=== PATIENT | female | born 1970 | race American Indian/Alaskan Native ===

== ENCOUNTER 2022-03-28 15:43 | Emergency (ER) | payer SELFPAY ==
[2022-03-28 17:42] LABS: Basophils % (Auto) 0.1 % (0.0-1.8); Eosinophils % (Auto) 0.1 % (0.0-4.3); Hematocrit 37.5 % (30.3-42.9); Hemoglobin 12.6 gm/dl (10.1-14.3); Lymphocytes # (Auto) 2.1 K/mm3 (1.2-5.4); Lymphocytes % (Auto) 26.4 % (13.4-35.0); Mean Corpuscular HGB Conc 34 % (30-34); Mean Corpuscular Volume 87 fl (79-97); Monocytes # (Auto) 0.5 K/mm3 (0.0-0.8); Monocytes % (Auto) 5.7 % (0.0-7.3); Platelet Count 237 K/mm3 (140-440)
[2022-03-28 18:03] LABS: Alanine Aminotransferase 11 units/L (7-56); Albumin 4.6 g/dL (3.9-5); BUN/Creatinine Ratio 20; Blood Urea Nitrogen 18 mg/dL (7-17); Calcium 9.8 mg/dL (8.4-10.2); Hemolysis Index 10
[2022-03-28 18:57] LABS: Amphetamine Screen,Urine PRESUMPTIVE NEGATIVE; Bacteria,Urine 1+ /HPF (Negative); Benzodiazepines Screen,Urine PRESUMPTIVE NEGATIVE; Bilirubin,Urine NEG (Negative); Blood,Urine MOD (Negative); Cannabinoid Screen,Urine PRESUMPTIVE NEGATIVE; Cocaine Screen,Urine PRESUMPTIVE NEGATIVE; Color,Urine Straw (Yellow); HCG Qualitative,Urine Negative (Negative); Methadone Screen,Urine PRESUMPTIVE NEGATIVE; Mucus,Urine FEW /HPF; Opiate Screen,Urine PRESUMPTIVE NEGATIVE; Protein,Urine <15 mg/dL mg/dL (Negative); Urobilinogen,Urine < 2.0 mg/dL (<2.0)
--- NOTE | 2022-03-28 19:22 | Emergency Department Report ---
ED General Adult HPI - General Chief complaint: Psych Stated complaint: SI Time Seen by Provider: 03/28/22 16:26 Source: patient Mode of arrival: Ambulatory Limitations: No Limitations - History of Present Illness Initial comments: patient presents with complaints of suicidal and homicidal thoughts. Denies concrete plan. Has a hx of depression. Denies visual and auditory hallucinations. Denies CP, SOB, palpitations, diaphoresis, abd pain, back pain, numbness, weakness. Severity scale (0 -10): 0 - Related Data Home Medications Medication Instructions Recorded Confirmed Last Taken Clobetasol Propionate 1 applic .ROUTE BID 04/22/15 04/27/15 04/26/15 FLUoxetine HCL [Fluoxetine HCl] 80 mg PO DAILY 04/22/15 04/27/15 04/25/15 Ferrous Sulfate [Feosol] 325 mg PO TID 04/22/15 04/27/15 04/25/15 Levocetirizine Dihydrochloride 5 mg PO DAILY 04/22/15 04/27/15 04/25/15 [Xyzal] Loratadine (Nf) [Claritin] 10 mg PO BID 04/22/15 04/27/15 04/25/15 Norgestrel-Ethinyl Estradiol 1 tab PO DAILY 04/22/15 04/27/15 04/25/15 [[place]sel[place]-28 Tablet] Prednisone 10 mg PO DAILY 04/22/15 04/27/15 04/26/15 medroxyPROGESTERone ACETATE 10 mg PO QDAY 04/22/15 04/27/15 04/25/15 [Provera] Previous Rx's Medication Instructions Recorded Last Taken Type Ferrous Sulfate [Feosol 325 MG tab] 325 mg PO BID #60 tablet 04/27/15 Unknown Rx HYDROcodone/APAP 5-325 [[place] 1 each PO Q6HR PRN #30 tablet 04/27/15 Unknown Rx 5/325] Ibuprofen [Motrin 600 MG tab] 600 mg PO Q6H PRN #30 tablet 04/27/15 Unknown Rx Ciprofloxacin HCl [Ciprofloxacin 500 mg PO BID #20 tablet 08/12/16 Unknown Rx TAB] Allergies Allergy/AdvReac Type Severity Reaction Status Date / Time zolpidem tartrate Allergy Unknown Verified 04/22/15 10:14 [From Maria Alejandra] ED Review of Systems ROS: Stated complaint: SI Other details as noted in HPI Comment: All other systems reviewed and negative Constitutional: denies: chills, fever ED Past Medical Hx - Past Medical History Hx Congestive Heart Failure: No Hx Diabetes: No Hx Arthritis: Yes Hx Headaches / Migraines: Yes (occas migraine) Hx Psychiatric Treatment: Yes (depression & anxiety) Hx Asthma: No Hx COPD: No Additional medical history: "fibroids",anemia - Surgical History Hx Coronary Stent: No Hx Open Heart Surgery: No Hx Pacemaker: No Hx Internal Defibrillator: No Hx Cholecystectomy: No Hx Appendectomy: No Hx Breast Surgery: No Additional Surgical History: "tubal" - Social History Smoking Status: Never Smoker Substance Use Type: None - Medications Home Medications: Home Medications Medication Instructions Recorded Confirmed Last Taken Type Clobetasol Propionate 1 applic .ROUTE BID 04/22/15 04/27/15 04/26/15 History FLUoxetine HCL [Fluoxetine HCl] 80 mg PO DAILY 04/22/15 04/27/15 04/25/15 History Ferrous Sulfate [Feosol] 325 mg PO TID 04/22/15 04/27/15 04/25/15 History Levocetirizine Dihydrochloride 5 mg PO DAILY 04/22/15 04/27/15 04/25/15 History [Xyzal] Loratadine (Nf) [Claritin] 10 mg PO BID 04/22/15 04/27/15 04/25/15 History Norgestrel-Ethinyl Estradiol 1 tab PO DAILY 04/22/15 04/27/15 04/25/15 History [[place]ry[place]le-28 Tablet] Prednisone 10 mg PO DAILY 04/22/15 04/27/15 04/26/15 History medroxyPROGESTERone ACETATE 10 mg PO QDAY 04/22/15 04/27/15 04/25/15 History [Provera] Ferrous Sulfate [Feosol 325 MG tab] 325 mg PO BID #60 tablet 04/27/15 Unknown Rx HYDROcodone/APAP 5-325 [[place] 1 each PO Q6HR PRN #30 tablet 04/27/15 Unknown Rx 5/325] Ibuprofen [Motrin 600 MG tab] 600 mg PO Q6H PRN #30 tablet 04/27/15 Unknown Rx Ciprofloxacin HCl [Ciprofloxacin 500 mg PO BID #20 tablet 08/12/16 Unknown Rx TAB] ED Physical Exam - General Limitations: No Limitations General appearance: alert, in no apparent distress - Head Head exam: Present: atraumatic, normocephalic - Eye Eye exam: Present: PERRL, EOMI - ENT ENT exam: Present: mucous membranes moist, other (airway patent) - Neck Neck exam: Present: other (supple; no JVD) - Respiratory Respiratory exam: Present: other (good air entry, nml I:E, CTAB, no use of RYNE) - Cardiovascular Cardiovascular Exam: Present: regular rate. Absent: rubs, gallop - GI/Abdominal GI/Abdominal exam: Present: soft, normal bowel sounds. Absent: distended, tenderness - Extremities Exam Extremities exam: Present: full ROM. Absent: tenderness - Back Exam Back exam: Present: full ROM. Absent: tenderness - Neurological Exam Neurological exam: Present: alert, oriented X3, CN II-XII intact. Absent: motor sensory deficit - Psychiatric Psychiatric exam: Present: flat affect, suicidal ideation - Skin Skin exam: Present: warm, normal color ED Course Vital Signs 03/28/22 03/28/22 03/28/22 15:57 18:46 20:22 Temperature 98.0 F 98.2 F 98.9 F Pulse Rate 75 72 70 Respiratory 18 15 18 Rate Blood Pressure 161/92 162/94 164/90 [Right] O2 Sat by Pulse 98 100 99 Oximetry ED Medical Decision Making - Lab Data Result diagrams: 03/28/22 17:07 03/28/22 17:07 Laboratory Tests 03/28/22 03/28/22 03/28/22 17:07 17:07 17:07 WBC 7.9 RBC 4.30 Hgb 12.6 Hct 37.5 MCV 87 MCH 29 MCHC 34 RDW 14.0 Plt Count 237 Lymph % (Auto) 26.4 [place] % (Auto) 5.7 Eos % (Auto) 0.1 Baso % (Auto) 0.1 Lymph # (Auto) 2.1 [place] # (Auto) 0.5 Eos # (Auto) 0.0 Baso # (Auto) 0.0 Seg Neutrophils % 67.7 Seg Neutrophils # 5.4 Sodium 142 Potassium 3.9 Chloride 102.5 Carbon Dioxide 25 Anion Gap 18 BUN 18 H Creatinine 0.9 Estimated GFR > 60 BUN/Creatinine Ratio 20 Glucose 111 H Calcium 9.8 Total Bilirubin 0.30 AST 15 ALT 11 Alkaline Phosphatase 87 Total Protein 7.4 Albumin 4.6 Albumin/Globulin Ratio 1.6 Urine Color Urine Turbidity Urine pH Ur Specific [place] Urine Protein Urine Glucose (UA) Urine Ketones Urine Blood Urine Nitrite Urine Bilirubin Urine Urobilinogen Ur Leukocyte Esterase Urine WBC (Auto) Urine RBC (Auto) U Epithel Cells (Auto) Urine Bacteria (Auto) Urine Mucus Urine HCG, Qual Salicylates < 0.3 L Urine Opiates Screen Urine Methadone Screen Acetaminophen Ur Barbiturates Screen Ur Phencyclidine Scrn Ur Amphetamines Screen U Benzodiazepines Scrn Urine Cocaine Screen U Marijuana (THC) Screen Plasma/Serum Alcohol 03/28/22 03/28/22 03/28/22 17:07 17:07 Unknown WBC RBC Hgb Hct MCV MCH MCHC RDW Plt Count Lymph % (Auto) [place] % (Auto) Eos % (Auto) Baso % (Auto) Lymph # (Auto) [place] # (Auto) Eos # (Auto) Baso # (Auto) Seg Neutrophils % Seg Neutrophils # Sodium Potassium Chloride Carbon Dioxide Anion Gap BUN Creatinine Estimated GFR BUN/Creatinine Ratio Glucose Calcium Total Bilirubin AST ALT Alkaline Phosphatase Total Protein Albumin Albumin/Globulin Ratio Urine Color Straw Urine Turbidity Clear Urine pH 5.0 Ur Specific [place] 1.013 Urine Protein <15 mg/dl Urine Glucose (UA) Neg Urine Ketones Neg Urine Blood Mod Urine Nitrite Neg Urine Bilirubin Neg Urine Urobilinogen < 2.0 Ur Leukocyte Esterase Neg Urine WBC (Auto) 2.0 Urine RBC (Auto) 7.0 U Epithel Cells (Auto) 8.0 Urine Bacteria (Auto) 1+ Urine Mucus Few Urine HCG, Qual Negative Salicylates Urine Opiates Screen Urine Methadone Screen Acetaminophen 7.1 L Ur Barbiturates Screen Ur Phencyclidine Scrn Ur Amphetamines Screen U Benzodiazepines Scrn Urine Cocaine Screen U Marijuana (THC) Screen Plasma/Serum Alcohol < 0.01 03/28/22 Unknown WBC RBC Hgb Hct MCV MCH MCHC RDW Plt Count Lymph % (Auto) [place] % (Auto) Eos % (Auto) Baso % (Auto) Lymph # (Auto) [place] # (Auto) Eos # (Auto) Baso # (Auto) Seg Neutrophils % Seg Neutrophils # Sodium Potassium Chloride Carbon Dioxide Anion Gap BUN Creatinine Estimated GFR BUN/Creatinine Ratio Glucose Calcium Total Bilirubin AST ALT Alkaline Phosphatase Total Protein Albumin Albumin/Globulin Ratio Urine Color Urine Turbidity Urine pH Ur Specific [place] Urine Protein Urine Glucose (UA) Urine Ketones Urine Blood Urine Nitrite Urine Bilirubin Urine Urobilinogen Ur Leukocyte Esterase Urine WBC (Auto) Urine RBC (Auto) U Epithel Cells (Auto) Urine Bacteria (Auto) Urine Mucus Urine HCG, Qual Salicylates Urine Opiates Screen Presumptive negative Urine Methadone Screen Presumptive negative Acetaminophen Ur Barbiturates Screen Presumptive negative Ur Phencyclidine Scrn Presumptive negative Ur Amphetamines Screen Presumptive negative U Benzodiazepines Scrn Presumptive negative Urine Cocaine Screen Presumptive negative U Marijuana (THC) Screen Presumptive negative Plasma/Serum Alcohol - Medical Decision Making Patient medically cleared. 1013 signed. MH consulted. Critical care attestation.: If time is entered above; I have spent that time in minutes in the direct care of this critically ill patient, excluding procedure time. ED Disposition Clinical Impression: Suicidal thoughts Disposition: 30 STILL A PATIENT Is pt being admited?: No Does the pt Need Aspirin: No Condition: Stable Referrals: PRIMARY CARE, [Primary Care Provider] - 3-5 Days Time of Disposition: 21:00 (Patient care transferred to Dr. Livingston (oncoming night ER doc). Sign out was given by me to him.)
[2022-03-29 09:13] VITALS: BP 137/87
--- NOTE | 2022-03-29 10:47 | Consultation ---
History of Present Illness - Reason for Consult Consult date: 03/29/22 Reason for consult: Mental health evaluation - History of Present Psychiatric Illness The patient is a 81 year old female with history of depression, and anxiety disorder who presents to the ED with suicidal ideation. The patient is calm, alert and oriented x3. She reports that is non compliant with psychotropic because it is not effective; last took meds 2 weeks ago. She reports having suicidal ideation for the past one week. She denies any current suicidal/homicidal ideation and denies hallucinations. PAST PSYCHIATRIC HISTORY: Diagnoses: Depression, Anxiety Suicide attempts or Self-harm behavior:Denies Prior psychiatric hospitalizations: Denies Substance Abuse history: Denies Previous psychiatric medications tried:Prozac Outpatient treatment:Unknown PAST MEDICAL HISTORY: None reported or document Family Psychiatric History: None reported or documented SOCIAL HISTORY Marital Status: single Living Arrangements: Lives alone Employment Status: Employed Access to guns/weapons: Denies Education:Some college History of Abuse: Denies Legal History: Denies REVIEW OF SYSTEMS Constitutional: Negative for weight loss ENT: Negative for stridor Respiratory: Negative for cough or hemoptysis All other systems reviewed and are negative MENTAL STATUS EXAMINATION General Appearance and Behavior: Age appropriate, wearing appropriate clothes, cooperative, polite with questioning, good eye contact, calm, polite Cooperation: cooperative Psychomotor Behavior: Psychomotor normal Mood: Depressed Affect and affective range: Congruent with stated mood Thought Process: Goal directed Thought Content:Reality oriented Speech: Normal volume, Regular rate and rhythm Suicidal Ideation: Denies Homicidal Ideation: Denies Hallucination: Denies Delusions: None elicited Impulse Control: limited Insight and Judgment: Limited Memory: intact Attention: attentive Orientation: Alert and oriented Diagnoses: Major depressive disorder Treatment Plan DC 1013 Continue home meds Prozac 40mg po daily Abilify 5mg po daily Trazodone 50 mg po QHS PSYCHOTHERAPY: Supportive psychotherapy provided MEDICAL: Per primary team DELIRIUM PRECAUTIONS: Please re-orient patient frequently, keep lights on during the day, and minimize benzodiazepines and opiates as these medications could worsen patient's confusion. INSURANCE WRITER: Per medical team DISPOSITION: Do not recommend acute psychiatric inpatient treatment. Hand Packager will provide patient with psychiatric outpatient resources. Will sign off. Thank you for the consult. Case staffed with Dr. Her Medications and Allergies Medications and Allergies Allergies Allergy/AdvReac Type Severity Reaction Status Date / Time zolpidem tartrate Allergy Unknown Verified 04/22/15 10:14 [From Ambien] Home Medications Medication Instructions Recorded Confirmed Last Taken Type Clobetasol Propionate 1 applic .ROUTE BID 04/22/15 04/27/15 04/26/15 History FLUoxetine HCL [Fluoxetine HCl] 80 mg PO DAILY 04/22/15 04/27/15 04/25/15 History Ferrous Sulfate [Feosol] 325 mg PO TID 04/22/15 04/27/15 04/25/15 History Levocetirizine Dihydrochloride 5 mg PO DAILY 04/22/15 04/27/15 04/25/15 History [Xyzal] Loratadine (Nf) [Claritin] 10 mg PO BID 04/22/15 04/27/15 04/25/15 History Norgestrel-Ethinyl Estradiol 1 tab PO DAILY 04/22/15 04/27/15 04/25/15 History [Cryselle-28 Tablet] Prednisone 10 mg PO DAILY 04/22/15 04/27/15 04/26/15 History medroxyPROGESTERone ACETATE 10 mg PO QDAY 04/22/15 04/27/15 04/25/15 History [Provera] Ferrous Sulfate [Feosol 325 MG tab] 325 mg PO BID #60 tablet 04/27/15 Unknown Rx HYDROcodone/APAP 5-325 [[place] 1 each PO Q6HR PRN #30 tablet 04/27/15 Unknown Rx 5/325] Ibuprofen [Motrin 600 MG tab] 600 mg PO Q6H PRN #30 tablet 04/27/15 Unknown Rx Ciprofloxacin HCl [Ciprofloxacin 500 mg PO BID #20 tablet 08/12/16 Unknown Rx TAB] ARIPiprazole [Abilify TAB] 5 mg PO DAILY 30 Days #30 03/29/22 Unknown Rx FLUoxetine HCL [PROzac] 40 mg PO QDAY 30 Days #30 cap 03/29/22 Unknown Rx traZODone [Desyrel] 50 mg PO QHS 30 Days #30 tab 03/29/22 Unknown Rx Mental Status Exam - Vital signs Last Vital Signs Temp 98.6 F 03/29/22 09:08 Pulse 67 03/29/22 09:08 Resp 20 03/29/22 09:08 BP 137/87 03/29/22 09:08 Pulse Ox 99 03/29/22 09:08 Results Result Diagrams: 03/28/22 17:07 03/28/22 17:07 Abnormal lab results 03/28/22 03/28/22 03/28/22 Range/Units 17:07 17:07 17:07 BUN 18 H (7-17) mg/dL Glucose 111 H (65-100) mg/dL Salicylates < 0.3 L (2.8-20.0) mg/dL Acetaminophen 7.1 L (10.0-30.0) ug/mL All other labs normal.
--- NOTE | 2022-03-29 11:52 | Event Note ---
Date: 03/29/22 (@ 11:00 am) Progress follow up of patient in psych. No issues overnight. No new complaints this morning. Patient presented yesterday with complaints of suicidal thoughts. Patient was seen today by psych (NICO Chan; staffed with Dr. Her), who recommend discharging patient, to continue on her home prozac, abilify and trazodone, and to follow up as an outpatient. ED General adult EXAM - General Limitations: No Limitations - Head Head exam: Positive: atraumatic, normocephalic - ENT ENT exam: Positive: mucous membranes moist, other (airway patent) - Neck Neck exam: Positive: full ROM, other (no JVD) - Respiratory Respiratory exam: Positive: other (good air entry, nml I:E, CTAB, no use of RYNE) - Cardiovascular Cardiovascular Exam: Positive: regular rate. Negative: rubs, gallop - GI/Abdominal GI/Abdominal exam: Positive: soft, normal bowel sounds. Negative: distended, tenderness - Extremities Extremities exam: Positive: full ROM. Negative: pedal edema, calf tenderness - Back Back exam: full ROM. denies: tenderness - Neurological Neurological exam: Positive: alert, oriented X3, CN II-XII intact. Negative: motor sensory deficit - Skin Skin exam: Positive: warm, normal color ED Medical Decision Making - Lab Data Result diagrams: 03/28/22 17:07 03/28/22 17:07 Laboratory Tests 03/28/22 03/28/22 03/28/22 17:07 17:07 17:07 WBC 7.9 RBC 4.30 Hgb 12.6 Hct 37.5 MCV 87 MCH 29 MCHC 34 RDW 14.0 Plt Count 237 Lymph % (Auto) 26.4 [place] % (Auto) 5.7 Eos % (Auto) 0.1 Baso % (Auto) 0.1 Lymph # (Auto) 2.1 [place] # (Auto) 0.5 Eos # (Auto) 0.0 Baso # (Auto) 0.0 Seg Neutrophils % 67.7 Seg Neutrophils # 5.4 Sodium 142 Potassium 3.9 Chloride 102.5 Carbon Dioxide 25 Anion Gap 18 BUN 18 H Creatinine 0.9 Estimated GFR > 60 BUN/Creatinine Ratio 20 Glucose 111 H Calcium 9.8 Total Bilirubin 0.30 AST 15 ALT 11 Alkaline Phosphatase 87 Total Protein 7.4 Albumin 4.6 Albumin/Globulin Ratio 1.6 Urine Color Urine Turbidity Urine pH Ur Specific [place] Urine Protein Urine Glucose (UA) Urine Ketones Urine Blood Urine Nitrite Urine Bilirubin Urine Urobilinogen Ur Leukocyte Esterase Urine WBC (Auto) Urine RBC (Auto) U Epithel Cells (Auto) Urine Bacteria (Auto) Urine Mucus Urine HCG, Qual Salicylates < 0.3 L Urine Opiates Screen Urine Methadone Screen Acetaminophen Ur Barbiturates Screen Ur Phencyclidine Scrn Ur Amphetamines Screen U Benzodiazepines Scrn Urine Cocaine Screen U Marijuana (THC) Screen Drugs of Abuse Note Plasma/Serum Alcohol 03/28/22 03/28/22 03/28/22 17:07 17:07 Unknown WBC RBC Hgb Hct MCV MCH MCHC RDW Plt Count Lymph % (Auto) [place] % (Auto) Eos % (Auto) Baso % (Auto) Lymph # (Auto) [place] # (Auto) Eos # (Auto) Baso # (Auto) Seg Neutrophils % Seg Neutrophils # Sodium Potassium Chloride Carbon Dioxide Anion Gap BUN Creatinine Estimated GFR BUN/Creatinine Ratio Glucose Calcium Total Bilirubin AST ALT Alkaline Phosphatase Total Protein Albumin Albumin/Globulin Ratio Urine Color Straw Urine Turbidity Clear Urine pH 5.0 Ur Specific [place] 1.013 Urine Protein <15 mg/dl Urine Glucose (UA) Neg Urine Ketones Neg Urine Blood Mod Urine Nitrite Neg Urine Bilirubin Neg Urine Urobilinogen < 2.0 Ur Leukocyte Esterase Neg Urine WBC (Auto) 2.0 Urine RBC (Auto) 7.0 U Epithel Cells (Auto) 8.0 Urine Bacteria (Auto) 1+ Urine Mucus Few Urine HCG, Qual Negative Salicylates Urine Opiates Screen Urine Methadone Screen Acetaminophen 7.1 L Ur Barbiturates Screen Ur Phencyclidine Scrn Ur Amphetamines Screen U Benzodiazepines Scrn Urine Cocaine Screen U Marijuana (THC) Screen Drugs of Abuse Note Plasma/Serum Alcohol < 0.01 03/28/22 Unknown WBC RBC Hgb Hct MCV MCH MCHC RDW Plt Count Lymph % (Auto) [place] % (Auto) Eos % (Auto) Baso % (Auto) Lymph # (Auto) [place] # (Auto) Eos # (Auto) Baso # (Auto) Seg Neutrophils % Seg Neutrophils # Sodium Potassium Chloride Carbon Dioxide Anion Gap BUN Creatinine Estimated GFR BUN/Creatinine Ratio Glucose Calcium Total Bilirubin AST ALT Alkaline Phosphatase Total Protein Albumin Albumin/Globulin Ratio Urine Color Urine Turbidity Urine pH Ur Specific [place] Urine Protein Urine Glucose (UA) Urine Ketones Urine Blood Urine Nitrite Urine Bilirubin Urine Urobilinogen Ur Leukocyte Esterase Urine WBC (Auto) Urine RBC (Auto) U Epithel Cells (Auto) Urine Bacteria (Auto) Urine Mucus Urine HCG, Qual Salicylates Urine Opiates Screen Presumptive negative Urine Methadone Screen Presumptive negative Acetaminophen Ur Barbiturates Screen Presumptive negative Ur Phencyclidine Scrn Presumptive negative Ur Amphetamines Screen Presumptive negative U Benzodiazepines Scrn Presumptive negative Urine Cocaine Screen Presumptive negative U Marijuana (THC) Screen Presumptive negative Drugs of Abuse Note Disclamer Plasma/Serum Alcohol - Medical Decision Making Per [facility], patient can be discharged on home PO meds to follow up as an outpatient. IMPRESSION: 1. Major depressive disorder ED Disposition Disposition: HOME / SELF CARE / HOMELESS Is pt being admited?: No Does the pt Need Aspirin: No Condition: Stable Instructions: Major Depressive Disorder, Adult, [id number] Additional Instructions: Professional and Agency Contacts To help [facility] (03/06) [place] Crisis Line: Suicide Prevention Line: Crisis Text Line: Text START to [phone] Emergency: 911 Outpatient COMMUNITY Behavioral Health Resources: ANN-MARIE: [facility] [address] [place], [place] [address] [facility] [address] [place] [address] Saturday thru Saturday - 8am - 5pm Call to schedule an assessment for mental health and substance abuse pr abi [facility] Address: [address] [place], [place] Saturday thru Saturday- 7am-2pm [facility] Address: [address] [place] [address] Saturday thrsaturday: 8:30AM-5PM Prescriptions: traZODone [Desyrel] 50 mg PO QHS 30 Days #30 tab ARIPiprazole [Abilify TAB] 5 mg PO DAILY 30 Days #30 FLUoxetine HCL [PROzac] 40 mg PO QDAY 30 Days #30 cap Referrals: PRIMARY CARE, [Primary Care Provider] - 3-5 Days Time of Disposition: 11:55
== END 2022-03-29 12:17 | disposition home or self-care (01) ==
LOC: ED 15:43
DX: R45.851 Suicidal ideations (principal); M19.90 Unspecified osteoarthritis, unspecified site; G43.909 Migraine, unspecified, not intractable, without status migrainosus; F32.A Depression, unspecified; Z98.890 Other specified postprocedural states; Z91.09 Other allergy status, other than to drugs and biological substances; Z79.899 Other long term (current) drug therapy
CPT/HCPCS: 36415; 80053; 80307; 80320; 81001; 81025; 85025; 99284; G0480

== ENCOUNTER 2022-04-04 11:15 | Emergency (ER) | payer SELFPAY ==
[2022-04-04 13:04] LABS: Bilirubin,Urine NEG (Negative); Blood,Urine MOD (Negative); Color,Urine Yellow (Yellow); Mucus,Urine FEW /HPF; Protein,Urine <15 mg/dL mg/dL (Negative); Urobilinogen,Urine < 2.0 mg/dL (<2.0); WBC,Urine < 1.0 /HPF (0.0-6.0)
--- NOTE | 2022-04-04 13:43 | Emergency Department Report ---
ED Dysuria HPI - HPI Chief Complaint: Back Pain/Injury Stated Complaint: KIDNEY PAIN/LOWER STOMACH Time Seen by Provider: 04/04/22 12:34 Duration: 2 Days Location of Discomfort: Suprapubic Severity: Mild Symptoms: Dysuria: Yes, Frequency: No, Suprapubic Pain: No, Flank Pain: No, Fever: No, Hematuria: No, Abdominal Pain: No, Previous UTI's: Yes Other History: Patient is a 51-year-old female that comes to the emergency room with dysuria that radiates around to her front bilaterally. She has no discharge. No vaginal bleeding. Last menstrual cycle was 2014. She is ambulatory, nontoxic [id number]. She states that she has had UTIs in the past and she feels like that is what she is getting. She has not seen her PCP. ED Review of Systems ROS: Stated complaint: KIDNEY PAIN/LOWER STOMACH Other details as noted in HPI Comment: All other systems reviewed and negative ED Past Medical Hx - Past Medical History Previous Medical History?: Yes Hx Congestive Heart Failure: No Hx Diabetes: No Hx Arthritis: Yes Hx Headaches / Migraines: Yes (occas migraine) Hx Psychiatric Treatment: Yes (depression & anxiety) Hx Asthma: No Hx COPD: No Additional medical history: "fibroids",anemia - Surgical History Past Surgical History?: Yes Hx Coronary Stent: No Hx Open Heart Surgery: No Hx Pacemaker: No Hx Internal Defibrillator: No Hx Cholecystectomy: No Hx Appendectomy: No Hx Breast Surgery: No Additional Surgical History: "tubal" - Social History Smoking Status: Never Smoker Substance Use Type: None - Medications Home Medications: Home Medications Medication Instructions Recorded Confirmed Last Taken Type Clobetasol Propionate 1 applic .ROUTE BID 04/22/15 04/27/15 04/26/15 History FLUoxetine HCL [Fluoxetine HCl] 80 mg PO DAILY 04/22/15 04/27/15 04/25/15 History Ferrous Sulfate [Feosol] 325 mg PO TID 04/22/15 04/27/15 04/25/15 History Levocetirizine Dihydrochloride 5 mg PO DAILY 04/22/15 04/27/15 04/25/15 History [Xyzal] Loratadine (Nf) [Claritin] 10 mg PO BID 04/22/15 04/27/15 04/25/15 History Norgestrel-Ethinyl Estradiol 1 tab PO DAILY 04/22/15 04/27/15 04/25/15 History [C[place]sel[place]-28 Tablet] Prednisone 10 mg PO DAILY 04/22/15 04/27/15 04/26/15 History medroxyPROGESTERone ACETATE 10 mg PO QDAY 04/22/15 04/27/15 04/25/15 History [Provera] Ferrous Sulfate [Feosol 325 MG tab] 325 mg PO BID #60 tablet 04/27/15 Unknown Rx HYDROcodone/APAP 5-325 [[place] 1 each PO Q6HR PRN #30 tablet 04/27/15 Unknown Rx 5/325] Ibuprofen [Motrin 600 MG tab] 600 mg PO Q6H PRN #30 tablet 04/27/15 Unknown Rx Ciprofloxacin HCl [Ciprofloxacin 500 mg PO BID #20 tablet 08/12/16 Unknown Rx TAB] ARIPiprazole [Abilify TAB] 5 mg PO DAILY 30 Days #30 03/29/22 Unknown Rx FLUoxetine HCL [PROzac] 40 mg PO QDAY 30 Days #30 cap 03/29/22 Unknown Rx traZODone [Desyrel] 50 mg PO QHS 30 Days #30 tab 03/29/22 Unknown Rx Sulfamethoxazole/Trimethoprim 1 each PO BID #10 tablet 04/04/22 Unknown Rx [Bactrim DS TAB] Dysuria Exam - Exam General: Vital signs noted. No distress. Alert and acting appropriately. Exam: Yes Moist Mucous Membranes, No CVA Tenderness, No Abdominal Tenderness, No Rigidity or Guarding Labs: Lab Results 04/04/22 Range/Units Unknown Urine Color Yellow (Yellow) Urine Turbidity Clear (Clear) Urine pH 7.0 (5.0-7.0) Ur Specific [place] 1.016 (1.003-1.030) Urine Protein <15 mg/dl (Negative) mg/dL Urine Glucose (UA) Neg (Negative) mg/dL Urine Ketones Neg (Negative) mg/dL Urine Blood Mod (Negative) Urine Nitrite Neg (Negative) Urine Bilirubin Neg (Negative) Urine Urobilinogen < 2.0 (<2.0) mg/dL Ur Leukocyte Esterase Neg (Negative) Urine WBC (Auto) < 1.0 (0.0-6.0) /HPF Urine RBC (Auto) 18.0 (0.0-6.0) /HPF U Epithel Cells (Auto) 5.0 (0-13.0) /HPF Urine Mucus Few /HPF ED Course Vital Signs 04/04/22 12:28 Temperature 98.2 F Pulse Rate 70 Respiratory 16 Rate Blood Pressure 137/90 [Left] O2 Sat by Pulse 96 Oximetry ED Medical Decision Making - Medical Decision Making Vital Signs 04/04/22 12:28 Temperature 98.2 F Pulse Rate 70 Respiratory 16 Rate Blood Pressure 137/90 [Left] O2 Sat by Pulse 96 Oximetry Lab Results 04/04/22 Range/Units Unknown Urine Color Yellow (Yellow) Urine Turbidity Clear (Clear) Urine pH 7.0 (5.0-7.0) Ur Specific [place] 1.016 (1.003-1.030) Urine Protein <15 mg/dl (Negative) mg/dL Urine Glucose (UA) Neg (Negative) mg/dL Urine Ketones Neg (Negative) mg/dL Urine Blood Mod (Negative) Urine Nitrite Neg (Negative) Urine Bilirubin Neg (Negative) Urine Urobilinogen < 2.0 (<2.0) mg/dL Ur Leukocyte Esterase Neg (Negative) Urine WBC (Auto) < 1.0 (0.0-6.0) /HPF Urine RBC (Auto) 18.0 (0.0-6.0) /HPF U Epithel Cells (Auto) 5.0 (0-13.0) /HPF Urine Mucus Few /HPF Given patient's symptoms and her concern for UTI have asked the lab to culture her urine. I will send her home on Bactrim. Call her if something else should grow. Patient ambulatory, nontoxic [id number]. Patient being discharged home with discharge plan of care including diet, activity, medications and follow-up. She verbalizes understanding of plan of care - Differential Diagnosis UTI Critical care attestation.: If time is entered above; I have spent that time in minutes in the direct care of this critically ill patient, excluding procedure time. ED Disposition Clinical Impression: Cystitis Disposition: 01 HOME / SELF CARE / HOMELESS Is pt being admited?: No Does the pt Need Aspirin: No Condition: Stable Instructions: Urinary Tract Infection, Adult, [id number] Additional Instructions: Stay well-hydrated with water Motrin or Tylenol for pain Antibiotic as ordered today until gone Follow-up with PCP after antibiotic to make sure this is gone away. Have given you referral below Referrals: KEV NUNES MD [Staff Physician] - 3-5 Days Forms: Work/School Release Form(ED) Time of Disposition: 13:49
[2022-04-04 13:53] VITALS: BP 128/78
== END 2022-04-04 14:05 | disposition home or self-care (01) ==
LOC: ED 11:15
DX: N30.90 Cystitis, unspecified without hematuria (principal); E11.9 Type 2 diabetes mellitus without complications; M19.90 Unspecified osteoarthritis, unspecified site; G43.909 Migraine, unspecified, not intractable, without status migrainosus; F32.9 Major depressive disorder, single episode, unspecified; F41.9 Anxiety disorder, unspecified; Z88.8 Allergy status to other drugs, medicaments and biological substances; Z98.51 Tubal ligation status; Z79.899 Other long term (current) drug therapy
CPT/HCPCS: 81001; 87086; 99283